=== PATIENT | male | born 1990 | race Caucasian/White ===

== ENCOUNTER 2016-05-09 09:33 | Emergency (ER) | payer MEDICAID, OTHER ==
[~2016-05-09] VITALS: Ht 190.5 cm; Wt 79.5 kg
[2016-05-09 09:46] VITALS: BP 123/85; PULSE 77; RESP 16; O2SAT 96
[2016-05-09] MEDS ORDERED: 0.9% Sodium Chloride 1,000 ML IV ONE (10:10)
--- NOTE | 2016-05-09 10:17 | ED.REPORT ---
HPI-Abd Pain M Under 38 Date of Service May 09, 2016 ED Provider: Jerrell Edmonds DO Aristides Hackett is a 26 year old otherwise healthy man who presents with a 2 week history of constipation and chronic low level headache. He reports that his diet leading up to the past couple weeks was very poor and low in fiber, and he slowly developed increasing constipation with perhaps 1 episode of blood in his stool but had eaten beets and red frosting earlier that day. He states that his headache is an exacerbation of his chronic low level tension headache with some associated mild photophobia, but no neurological symptoms or alterations in vision or sensation. He has only tried marijuana for pain relief as he "does not like pills". He states that when he was a child he has issues with constipation and used Miralax and fiber supplement Nursing Notes Stated Complaint: ABDOMINAL PAIN/HEADACHE Chief Complaint: Male Abdominal Pain Nursing Notes Reviewed: Yes Allergies: Coded Allergies: No Known Allergies (Unverified , 05/09/16) Scheduled Polyethylene Glycol 3350 (Miralax) 17 Gm Powd.pack 17 GM PO DAILY General Time Seen by MD: 10:10 Chief Complaint Abdominal pain Hx Obtained From: Patient Arrived By: Walk-in Onset Occurred: More than a week ago... (2 weeks) Location: : LLQ Quality: Cramping Radiation: : Does not radiate Severity: Current: Mild Severity: Maximum: Moderate Recent Healthcare: No recent doctor visit Similar Sx Previous: No Risk Factors Torsion Risk Stratification No Romero Clapper Deformity, No Other, No Prior Torsion, No Puberty CAD Risk Stratification No Amphetamine, No Cocaine, No Diabetes mellitus, No Family history, No Hyperlipidemia, No Hypertension, No Known CAD, No Smoking TAD Risk Stratification No 1st degree relative, No Aortic valve disease, No Coarctation of aorta, No Jaron-Danlos syndrome, No High intensity wt lifting, No Hypertension, No Inflamm dx / vasculitis, No Loeys-Mohit syndrome, No Marfan's syndrome, No Other genetic predisp, No Pre-exist aortic aneurysm, No , No Turners Syndrome Past Medical History Past Medical History Anxiety Review of Systems GI: Reports: Abdominal pain, Constipation Complete sys rev & neg: except as marked. Neurologic: Reports: Headache Physical Exam Gen: A/O x3 pleasant cooperative man in mild acute distress secondary to headache Neck: Supple, Full ROM, No thyromegaly HEENT: PERRL, EOMI, mucous membranes moist CV: RRR no murmurs rubs or gallops Abdomen: Soft, tender to palpation in LUQ and LLQ, mild palpable stool, BS+4Q Extr: No cyanosis clubbing or edema Neuro: CN 2-12 intact, no focal neurologic deficit. Initial Vital Signs Vital Signs (First) Date Time Temp Pulse Resp B/P Pulse Ox O2 Delivery O2 Flow Rate FiO2 05/09/16 09:46 36.4 77 16 123/85 96 Room Air Initial VS: Reviewed, Vital signs normal Re-Eval/Medical Decision Med Decision/Clinical Course Attending note: I saw and personally evaluated this patient. I will agree with the documentation above. After personally obtaining history from this patient, he made it clear that he has struggled with chronic constipation as a child, does not have severe abdominal pain, not concerned with fecal impaction, no vomiting. His bedside abdominal exam is benign, soft nontender without rebound or guarding in any of the 4 quadrants, not distended. Additionally he has been waking up in the morning with mild unilateral headaches with some associated photophobia, he reports again that he has had chronic migraines for years and this is similar to a thoracic at his prior migraine headaches. He denies any high risk features. Overall in a young otherwise healthy gentleman who does not take prescription medications, imaging and laboratory studies seem like they would be low yield. We will plan to treat his constipation based on his clinical symptoms and he will be given a dose of Toradol for migraines. Strict return and follow-up precautions are given. Patient with exacerbations of his chronic underlying constipation and headaches , he states that this are similar but more serious than his usual symptoms which are managed with diet and medical marijuana. We presented the option of a thorough workup with imaging and laboratory evaluation versus medicating his symptoms and then Discharging him and he elected for the latter. Patient was given follow up and return precautions prior to DC. Counseled Regarding: Diagnosis, Need for follow-up, When/why to return to ED Patient Discharge & Departure Shift Change Sign-Out Patient Care Transferred: No Discussed Complaint(s): Yes Response to Therapy: Improved Primary Impression: Headache Headache type: tension-type Headache chronicity pattern: chronic headache Intractability: not intractable Qualified Code: G44.229 - Chronic tension- type headache, not intractable Additional Impression: Constipation Constipation type: unspecified constipation type Qualified Code: K59.00 - Constipation, unspecified Disposition: Home Discharge Condition All VS Reviewed: Yes Condition: Stable Patient Instructions: Constipation (ED) Additional Instructions: This appears to be a worsening of your underlying issues with constipation and chronic low level migraines. We have given you medication for the headache and constipation, and provided you with a prescription for a stool softener to use until your bowel movements become more regular. I recommend that you purchase a Fiber supplement such as Metamucil to use as an outpatient. As you approach your 30s your capacity to endure an unhealthy lifestyle without consequence will start to fade; now is the time invest in your health through diet and exercise to avoid worse problems down the road. If your symptoms worsen or fail to improve you should establish care with a primary care provider for further evaluation and management of your symptoms. If you start to get severe abdominal pain, or are unable to have a bowel movement for several days please return back to the ED for further evaluation. Referrals: NOPCP Attending Statement The patient was seen and examined together with Dr. Mena on 05/09/16 and I have added additional information to the note above. Darian Mena DO May 09, 2016 10:17 Jerrell Edmonds DO May 09, 2016 10:58
[2016-05-09] MEDS ORDERED: POLY17PO6 PO (10:45)
== END 2016-05-09 10:53 | disposition home or self-care (01) ==
LOC: SED 09:33
DX: K59.00 Constipation, unspecified (principal); G44.229 Chronic tension-type headache, not intractable; R10.12 Left upper quadrant pain; R10.32 Left lower quadrant pain; H53.149 Visual discomfort, unspecified
CPT/HCPCS: 96372; 99283; J1885